=== PATIENT | female | born 1965 | race Caucasian/White ===

== ENCOUNTER 2017-04-02 18:35 | Emergency (ER) | payer OTHER ==
--- NOTE | 2017-04-02 19:41 | ED NURSING NOTES ---
Clinical Report - Nurses [facility] [address] [place] [address] 04/02/2017 18:38 Patient: RAGHAV SHEN TRIAGE Triage time 19:04. Acuity: LEVEL 4. Chief Complaint: SKIN PROBLEM and INSECT BITE --19:15 Karol Combs R.N. 19:07 04/02/17. BP: 194/103 taken on the left arm, while lying. HR: 101 (regular). RR: 18. O2 saturation: 100% on room air. Temp: 98.1 F (oral). Pain level now: 06/06. --19:15 Karol Combs R.N. Weight: 57.1 kg stated. Height/Length: 61 inches Per Patient. BMI: 23.8. --19:11 Karol Combs R.N. Medications Carvedilol Oral. CloNIDine HCl Oral. Lisinopril Oral. NIFEdipine Oral. --19:12 Karol Combs R.N. Allergies Penicillin. --19:12 Karol Combs R.N. Robaxin. --19:12 Karol Combs R.N. History Arrived by private vehicle. Historian: patient. Accompanied by family. Primary physician (jordi). Reported as located on the right ankle. This started today. Onset. (this morning). It is described as burning and painful. ( swollen with 2 open holes in middle noted to right ankle since this morning, pt reports thinking it is a spider bite.). PAST MEDICAL HX: Immunizations: up-to-date. Last normal menstrual period- 2010. The patient is post-menopausal. SOCIAL HX: Former smoker, end date 03/28/2017. No alcohol use or drug use. She has not traveled outside the [place] The patient was not exposed to tuberculosis, influenza, chicken pox, meningitis, MRSA, VRE, C-diff, SARS, Myles flu, H1N1 flu, Ebola or MERS. ABUSE ASSESSMENT: No report of abuse. SELF HARM ASSESSMENT: A self harm assessment was performed. The patient answered "no" to the question "Have you recently felt down, depressed, or hopeless?", "Have you noticed less interest or pleasure in doing things?", "Do you have thoughts of harming or killing yourself?", "Are you here because you tried to hurt yourself?", "Have you ever tried to hurt yourself before today?", "Have you recently had thoughts about harming or killing others?" and "Do you have any dangerous items in your possession?". FALL RISK ASSESSMENT: Fall risk assessment completed. No fall risk identified. NUTRITIONAL RISK ASSESSMENT: The nutritional risk assessment revealed no deficiencies. FUNCTIONAL ASSESSMENT: Functional assessment: no impairments noted. LEARNING NEEDS ASSESSMENT: The learning needs assessment revealed no barriers. SKIN INTEGRITY ASSESSMENT: Skin integrity risk assessment completed. No skin integrity risk identified. --19:15 Karol Combs R.N. PROBLEMS: Dialysis. Sprain. Abdominal Pain. Pelvic Inflammatory Disease. Renal Failure. --19:13 Karol Combs R.N. ADDITIONAL SURGERIES: Appendectomy. Fistula. --19:13 Karol Combs R.N. Interventions ID band on patient. --19:15 Karol Combs R.N. PHYSICAL ASSESSMENT To room via wheelchair. GENERAL / NEURO / PSYCH: Alert. Appears in pain. Oriented X 4. HEENT: Pupils equal, round and reactive to light. Mucous membranes are pink. RESPIRATORY: Respirations not labored. Breath sounds within normal limits. CVS: Capillary refill less than 2 seconds. Pulses within normal limits. GI / : Abdomen nontender. SKIN: Skin is warm. Single skin lesion with erythema, tenderness and increased warmth on the right ankle. Tenderness on the right ankle- associated with erythema, swelling and increased warmth. Swelling on the right ankle- associated with erythema, tenderness and increased warmth. Erythema on the right ankle. --19:16 Karol Combs R.N. NURSING PROGRESS NOTES Two patient identifiers checked. Call light placed in reach. Side rails up x 1. Bed placed in lowest position. Brakes of bed on. Patient ready for evaluation- chart flagged. --19:16 Karol Combs R.N. DISPOSITION / DISCHARGE Departure time: 1949. Condition at departure: unchanged and stable. No learning barriers present. Discharge instructions provided and reviewed with the patient. Reviewed medication(s) side effects, precautions, dosing and course information. Prescription(s) given to the patient. Reviewed wound care instructions. Patient verbalized understanding. Written instructions provided in [place]. The patient was discharged home and accompanied by spouse. She left the Emergency Department in a wheelchair and via private vehicle. Spouse driving. --19:55 Karol Combs R.N. 19:53 04/02/17. BP: 182/90 taken while lying. HR: 100 (regular and tachycardic). RR: 18 (regular and unlabored). O2 saturation: 100% on room air. Temp: deferred. Pain level now: 08/06. --19:55 Karol Combs R.N. Locked/Released at 04/02/2017 19:55 by Karol Cmobs R.N.
--- NOTE | 2017-04-02 19:41 | ED CLINICAL REPORT ---
Clinical Report - Physicians/Mid Levels [facility] [address] [place] [address] 04/02/2017 18:38 Patient: RAGHAV SHEN Time Seen: 1924; initial patient contact, initial documentation, patient care assumed. Arrived- By private vehicle. Historian- patient. HISTORY OF PRESENT ILLNESS Chief Complaint: LESION and TENDER AREA. This started today and is still present. It was abrupt in onset and has been constant. It is described as itchy, painful and burning. It has been located on the right foot. A possible cause has been identified (got bee sting on R hand so possibly stung on foot too). Similar symptoms previously: None. Recent medical care: Not recently seen/assessed. REVIEW OF SYSTEMS No fever. Dialysis M,W &F. All systems otherwise negative, except as recorded above. PAST HISTORY See nurses notes. PROBLEMS: Dialysis. Sprain. Abdominal Pain. Pelvic Inflammatory Disease. Renal Failure. --19:13 Karol Combs R.N. ADDITIONAL SURGERIES: Appendectomy. Fistula. --19:13 Karol Combs R.N. SOCIAL HISTORY Former smoker. No alcohol use or drug use. No recent travel. Is a local resident. FAMILY HISTORY Negative. ADDITIONAL NOTES The nursing notes have been reviewed with agreement regarding the chief complaint, HPI, ROS, PMH and patient medications and allergies. PHYSICAL EXAM Vital Signs: 04/02/2017 19:07 BP: 194/103. HR: 101. RR: 18. O2 saturation: 100%. Temp: 98.1 F. Pain level now: 8/10. Have been reviewed as abnormal and appear to be correct. Hypertensive. Heart rate normal. Respiratory rate normal. Temperature normal. Oxygen saturation normal. Appearance: Alert. Oriented X3. No acute distress. Eyes: Pupils equal, round and reactive to light. Conjunctivae and eyelids normal. ENT: Nose normal. Neck: Neck supple. Respiratory: No respiratory distress. Skin: Skin warm and dry. Abnormal skin color. No rash. Normal skin turgor. Small area of erythema with tenderness, warmth and swelling to right foot (x3 ? insect bites/stings, small pen point be[place] noted and evenly spaced). No lymphangitis. Extremities: Normal external inspection. Extremities nontender. Neuro: Oriented X 3. No motor deficit. No sensory deficit. PROGRESS AND PROCEDURES Patient counseled in person regarding the patient's stable condition and diagnosis. 19:40. Differential Diagnosis: Other possible considerations: insect bite/sting, mrsa, cellulitis, abscess, allergic reaction. Above considerations are based on history and physical exam. Differential diagnosis was discussed with patient. Disposition: Discharged home in good and unchanged condition (19:40). Condition: good and stable. CLINICAL IMPRESSION Multiple unknown insect bites to the right foot. Infection present. Local allergic reaction. Right. INSTRUCTIONS Warnings: GENERAL WARNINGS: Return or contact your physician immediately if your condition worsens or changes unexpectedly, if not improving as expected, or if other problems arise. Specifically return if problem worsens. Prescription Medications: Bactrim DS 800 mg / 160 mg: take 1 tablet orally every 12 hours for 10 days. No refill. [place] 5 mg / 325 mg tablets: take 1 orally every 6 hours as needed for pain. Dispense five (5). No refill. Motrin 800 mg tablets: take 1 tablet orally every 8 hours as needed for pain. Dispense thirty (30). No refills. Substitution is permissible. Follow-up: Follow up with your doctor in about two days as needed. Call for an appointment. Summary of care provided to patient. Understanding of the discharge instructions verbalized by patient. (Electronically signed by Alka Siddiqi A.R.N.P. 04/02/2017 22:23)
--- NOTE | 2017-04-02 19:41 | ED CLINICAL REPORT ---
Clinical Report - Physicians/Mid Levels [facility] [address] [place] [address] 04/02/2017 18:38 Patient: RAGHAV SHEN Time Seen: 1924; initial patient contact, initial documentation, patient care assumed. Arrived- By private vehicle. Historian- patient. HISTORY OF PRESENT ILLNESS Chief Complaint: LESION and TENDER AREA. This started today and is still present. It was abrupt in onset and has been constant. It is described as itchy, painful and burning. It has been located on the right foot. A possible cause has been identified (got bee sting on R hand so possibly stung on foot too). Similar symptoms previously: None. Recent medical care: Not recently seen/assessed. REVIEW OF SYSTEMS No fever. Dialysis M,W &F. All systems otherwise negative, except as recorded above. PAST HISTORY See nurses notes. PROBLEMS: Dialysis. Sprain. Abdominal Pain. Pelvic Inflammatory Disease. Renal Failure. --19:13 Karol Combs R.N. ADDITIONAL SURGERIES: Appendectomy. Fistula. --19:13 Karol Combs R.N. SOCIAL HISTORY Former smoker. No alcohol use or drug use. No recent travel. Is a local resident. FAMILY HISTORY Negative. ADDITIONAL NOTES The nursing notes have been reviewed with agreement regarding the chief complaint, HPI, ROS, PMH and patient medications and allergies. PHYSICAL EXAM Vital Signs: 04/02/2017 19:07 BP: 194/103. HR: 101. RR: 18. O2 saturation: 100%. Temp: 98.1 F. Pain level now: 8/10. Have been reviewed as abnormal and appear to be correct. Hypertensive. Heart rate normal. Respiratory rate normal. Temperature normal. Oxygen saturation normal. Appearance: Alert. Oriented X3. No acute distress. Eyes: Pupils equal, round and reactive to light. Conjunctivae and eyelids normal. ENT: Nose normal. Neck: Neck supple. Respiratory: No respiratory distress. Skin: Skin warm and dry. Abnormal skin color. No rash. Normal skin turgor. Small area of erythema with tenderness, warmth and swelling to right foot (x3 ? insect bites/stings, small pen point be[place] noted and evenly spaced). No lymphangitis. Extremities: Normal external inspection. Extremities nontender. Neuro: Oriented X 3. No motor deficit. No sensory deficit. PROGRESS AND PROCEDURES Patient counseled in person regarding the patient's stable condition and diagnosis. 19:40. Differential Diagnosis: Other possible considerations: insect bite/sting, mrsa, cellulitis, abscess, allergic reaction. Above considerations are based on history and physical exam. Differential diagnosis was discussed with patient. Disposition: Discharged home in good and unchanged condition (19:40). Condition: good and stable. CLINICAL IMPRESSION Multiple unknown insect bites to the right foot. Infection present. Local allergic reaction. Right. INSTRUCTIONS Warnings: GENERAL WARNINGS: Return or contact your physician immediately if your condition worsens or changes unexpectedly, if not improving as expected, or if other problems arise. Specifically return if problem worsens. Prescription Medications: Bactrim DS 800 mg / 160 mg: take 1 tablet orally every 12 hours for 10 days. No refill. [place] 5 mg / 325 mg tablets: take 1 orally every 6 hours as needed for pain. Dispense five (5). No refill. Motrin 800 mg tablets: take 1 tablet orally every 8 hours as needed for pain. Dispense thirty (30). No refills. Substitution is permissible. Follow-up: Follow up with your doctor in about two days as needed. Call for an appointment. Summary of care provided to patient. Understanding of the discharge instructions verbalized by patient. (Electronically signed by Alka Siddiqi A.R.N.P. 04/02/2017 22:23)
--- NOTE | 2017-04-02 22:24 | ED MAR SUMMARY ---
..... Medication Administration Record [facility] [address], [place] [id number] Patient: RAGHAV SHEN Visit ID: [id number] 51y, F Weight: 57.1 kg Height/Length: 61 in BMI: 23.8 ALLERGIES: Penicillin, Robaxin
--- NOTE | 2017-04-02 22:24 | ED MED RECONCILIATION SUMMARY ---
Patient: RAGHAV SHEN Medication Reconciliation Report [facility] VisitID: [id number] [address] [place] [address] 51y, F Registration Date/Time: 04/02/2017 Weight: 57.1 kg Height/Length: 61 in. BMI: 23.8 ALLERGIES: Penicillin, Robaxin The patient's Home Medications are listed below: THE FOLLOWING MEDICATIONS NEED TO BE RECONCILED: Carvedilol Oral CloNIDine HCl Oral Lisinopril Oral NIFEdipine Oral The source(s) of the original Home Medication information: Not obtained. The following Medications were given to the patient in the Emergency Department: None. The following Medications were prescribed to the patient: Bactrim DS 800 mg / 160 mg: take 1 tablet orally every 12 hours for 10 days. No refill. -- Alka Siddiqi A.R.N.P. [place] 5 mg / 325 mg tablets: take 1 orally every 6 hours as needed for pain. Dispense five (5). No refill. -- Alka Siddiqi A.R.N.P. Motrin 800 mg tablets: take 1 tablet orally every 8 hours as needed for pain. Dispense thirty (30). No refills. Substitution is permissible. -- Alka Siddiqi A.R.N.P.
--- NOTE | 2017-04-02 22:24 | ED ORDER SUMMARY ---
..... Patient: RAGHAV SHEN OrderSheet [facility] VisitID: [id number] [address] [place] [address] 51y, F Registration Date/Time: 04/02/2017 ORDER SHEET Weight: 57.1 kg (stated) Allergies: Penicillin, Robaxin GENERAL ORDERS: - (please yoselin area of erythema with skin pen) (19:42 04/02/2017 Sukh A.R.N.P.) (19:46 Alyce Landaverde) MEDICATION ORDERS: IV FLUIDS: ORDER SHEET NOTES: [Electronically signed by Karol Combs R.N. (19:55 04/02/2017)] [Electronically signed by Alka SiddiqiRRonaldN.PRonald (22:23 04/02/2017)] [Electronically locked/signed by Karol Combs R.N. (19:55 04/02/2017)]
--- NOTE | 2017-04-02 22:24 | ED DISCHARGE INSTRUCTIONS ---
Patient: RAGHAV SHEN General Instructions [facility] VisitID: [id number] [place] [address] 51y, F Registration Date/Time: 04/02/2017 Multiple unknown insect bites to the right foot. Infection present. Local allergic reaction. Right. INSTRUCTIONS Warnings: GENERAL WARNINGS: Return or contact your physician immediately if your condition worsens or changes unexpectedly, if not improving as expected, or if other problems arise. Specifically return if problem worsens. Prescription Medications: Bactrim DS 800 mg / 160 mg: take 1 tablet orally every 12 hours for 10 days. No refill. Matlock 5 mg / 325 mg tablets: take 1 orally every 6 hours as needed for pain. Dispense five (5). No refill. Motrin 800 mg tablets: take 1 tablet orally every 8 hours as needed for pain. Dispense thirty (30). No refills. Substitution is permissible. Follow-up: Follow up with your doctor in about two days as needed. Call for an appointment. Summary of care provided to patient. Understanding of the discharge instructions verbalized by patient. ADDITIONAL INFORMATION Insect Sting:Local Reaction You have been stung or bitten by an insect. The insects venom or body fluid is causing your skin to react in the area where you were stung or bitten. This often causes redness, itching and swelling. This reaction will fade over a few hours to a few days. An insect bite/sting can become infected 1-3 days later, so watch for the signs below. Sometimes it is hard to tell the difference between a local reaction to the insect bite/sting and an early infection, so antibiotics may be started. Home Care: If itching is a problem, avoid things that heat up your skin (hot showers or baths, direct sunlight) since this will make itching worse. An ice pack (ice cubes in a plastic bag, wrapped in a towel) will reduce local areas of redness and itching. Lanacaine cream or Solarcaine spray (or other product containing "benzocaine") will reduce the itching. Oral Benadryl (diphenhydramine) is an antihistamine available at drug and grocery stores. Unless a prescription antihistamine was given, Benadryl may be used to reduce itching if large areas of the skin are involved. Use lower doses during the daytime and higher doses at bedtime since the drug may make you sleepy. [NOTE: Do not use Benadryl if you have glaucoma or if you are a man with trouble urinating due to an enlarged prostate.] Claritin (loratadine) is an antihistamine that causes less drowsiness and is a good alternative for daytime use. If oral ANTIBIOTICS were prescribed, be sure to take them until finished. You may use acetaminophen (Tylenol) or ibuprofen (Motrin, Advil) to control pain, unless another pain medicine was prescribed. [NOTE: If you have chronic liver or kidney disease or ever had a stomach ulcer or GI bleeding, talk with your doctor before using these medicines.] Preventing Future Reactions: Future reactions could be worse than this one, so try to avoid situations where you might be stung again. Be aware that honeybees nest in trees. Wasps and yellow jackets nest in the ground, trees or roof eaves. If you are stung by a honeybee a stinger will remain in your skin. Wasps, yellow jackets, hornets do not leave a stinger behind. Move away from the nest area immediately. The stinger of a honeybee releases a substance that will attract other bees to you. Once you are away from the nest, then remove the stinger as quickly as possible. After any sting, you may apply ice and take Benadryl or other antihistamine. If you develop any of the warning signs below, seek help immediately. If you are at high risk for another sting or if your reaction included dizziness, fainting or trouble breathing or swallowing, ask your doctor for an Insect Allergy Kit. Follow Up with your doctor or this facility in two days if your symptoms do not start to improve. Get Prompt Medical Attention if any of the following occur: Spreading areas of itching, redness or swelling New or worse swelling in the face, eyelids, lips, mouth, throat or tongue Trouble swallowing or breathing Dizziness, weakness or fainting Signs of infection: Spreading redness Increased pain or swelling Fever of 100.4F (38C) or higher, or as directed by your healthcare provider Colored fluid draining from the wound Insect Bite/Sting, Infected You have been stung or bitten by an insect. Signs of infection include redness, itching, and slight swelling. Infections will need treatment with antibiotics and should improve over the next ten days. Home care The following will help you care for your bite or sting at home: If itching is a problem, applying ice packs to the sting area will help. Wash the area with soap and water at least three times a day. Apply a topical antibiotic cream or ointment. You can use an over-the counter antihistamine unless you were given a prescription antihistamine. Antihistamines may be used to reduce itching if large areas of the skin are involved. Use lower doses during the daytime and higher doses at bedtime since the drug may make you sleepy. Do not use an antihistamine if you have glaucoma or if you are a man with trouble urinating due to an enlarged prostate. Some antihistamines cause less drowsiness and are a good alternative for daytime use. If oral antibiotics have been prescribed, be sure to take them as directed until they are all finished. You may use acetaminophen or ibuprofen to control pain, unless another pain medicine was prescribed.If you have chronic liver or kidney disease or ever had a stomach ulcer or GI bleeding, talk with your doctor before using these medicines. Follow-up care Follow up with your doctor as directed if you do not improve over the next two days or if your symptoms worsen. When to seek medical care Get prompt medical attention if any of the following occur: Spreading areas of redness or swelling Swelling of the face, eyelids, mouth, throat, or tongue Difficulty swallowing or breathing Fever of 100.4F (38C) or higher, or as directed by your health care provider Increased local pain Headache, fever, chills, muscle or joint aching, vomiting, New rash Sulfamethoxazole, Trimethoprim Oral tablet What is this medicine? SULFAMETHOXAZOLE; TRIMETHOPRIM or SMX-TMP (suhl fuh meth OK con zohl; trye METH oh prim) is a combination of a sulfonamide antibiotic and a second antibiotic, trimethoprim. It is used to treat or prevent certain kinds of bacterial infections. It will not work for colds, flu, or other viral infections. How should I use this medicine? Take this medicine by mouth with a full glass of water. Follow the directions on the prescription label. Take your medicine at regular intervals. Do not take it more often than directed. Do not skip doses or stop your medicine early. Talk to your cut out operator regarding the use of this medicine in children. Special care may be needed. This medicine has been used in children as young as 2 months of age. What side effects may I notice from receiving this medicine? Side effects that you should report to your doctor or health child caregiver private home as soon as possible: allergic reactions like skin rash or hives, swelling of the face, lips, or tongue breathing problems fever or chills, sore throat irregular heartbeat, chest pain joint or muscle pain pain or difficulty passing urine red pinpoint spots on skin redness, blistering, peeling or loosening of the skin, including inside the mouth unusual bleeding or bruising unusually weak or tired yellowing of the eyes or skin Side effects that usually do not require medical attention (report to your doctor or health child caregiver private home if they continue or are bothersome): diarrhea dizziness headache loss of appetite nausea, vomiting nervousness What may interact with this medicine? Do not take this medicine with any of the following medications: aminobenzoate potassium dofetilide metronidazole This medicine may also interact with the following medications: KODY inhibitors like benazepril, enalapril, lisinopril, and ramipril cyclosporine digoxin diuretics indomethacin medicines for diabetes methenamine methotrexate phenytoin potassium supplements pyrimethamine sulfinpyrazone tricyclic antidepressants warfarin What if I miss a dose? If you miss a dose, take it as soon as you can. If it is almost time for your next dose, take only that dose. Do not take double or extra doses. Where should I keep my medicine? Keep out of the reach of children. Store at room temperature between 20 to 25 degrees C (68 to 77 degrees F). Protect from light. Throw away any unused medicine after the expiration date. What should I tell my health care provider before I take this medicine? They need to know if you have any of these conditions: anemia asthma being treated with anticonvulsants if you frequently drink alcohol containing drinks kidney disease liver disease low level of folic acid or [id number]-susgjnsom dehydrogenase poor nutrition or malabsorption porphyria severe allergies thyroid disorder an unusual or allergic reaction to sulfamethoxazole, trimethoprim, sulfa drugs, other medicines, foods, dyes, or preservatives or trying to get breast-feeding What should I watch for while using this medicine? Tell your doctor or health child caregiver private home if your symptoms do not improve. Drink several glasses of water a day to reduce the risk of kidney problems. Do not treat diarrhea with over the counter products. Contact your doctor if you have diarrhea that lasts more than 2 days or if it is severe and watery. This medicine can make you more sensitive to the sun. Keep out of the sun. If you cannot avoid being in the sun, wear protective clothing and use a sunscreen. Do not use sun lamps or tanning beds/booths. Hydrocodone Bitartrate, Acetaminophen Oral tablet What is this medicine? ACETAMINOPHEN; HYDROCODONE (a set a DAVID gerry fen; jillian droe KOE done) is a pain reliever. It is used to treat mild to moderate pain. How should I use this medicine? Take this medicine by mouth. Swallow it with a full glass of water. Follow the directions on the prescription label. If the medicine upsets your stomach, take the medicine with food or milk. Do not take more than you are told to take. Talk to your cut out operator regarding the use of this medicine in children. This medicine is not approved for use in children. What side effects may I notice from receiving this medicine? Side effects that you should report to your doctor or health child caregiver private home as soon as possible: allergic reactions like skin rash, itching or hives, swelling of the face, lips, or tongue breathing problems confusion feeling faint or lightheaded, falls stomach pain yellowing of the eyes or skin Side effects that usually do not require medical attention (report to your doctor or health child caregiver private home if they continue or are bothersome): nausea, vomiting stomach upset What may interact with this medicine? alcohol antihistamines isoniazid medicines for depression, anxiety, or psychotic disturbances medicines for sleep muscle relaxants naltrexone narcotic medicines (opiates) for pain phenobarbital ritonavir tramadol What if I miss a dose? If you miss a dose, take it as soon as you can. If it is almost time for your next dose, take only that dose. Do not take double or extra doses. Where should I keep my medicine? Keep out of the reach of children. This medicine can be abused. Keep your medicine in a safe place to protect it from theft. Do not share this medicine with anyone. Selling or giving away this medicine is dangerous and against the law. Store at room temperature between 15 and 30 degrees C (59 and 86 degrees F). Protect from light. Keep container tightly closed. Throw away any unused medicine after the expiration date. Discard unused medicine and used packaging carefully. Pets and children can be harmed if they find used or lost packages. What should I tell my health care provider before I take this medicine? They need to know if you have any of these conditions: brain tumor Crohn's disease, inflammatory bowel disease, or ulcerative colitis drink more than 3 alcohol-containing drinks per day drug abuse or addiction head injury heart or circulation problems kidney disease or problems going to the bathroom liver disease lung disease, asthma, or breathing problems an unusual or allergic reaction to acetaminophen, hydrocodone, other opioid analgesics, other medicines, foods, dyes, or preservatives or trying to get breast-feeding What should I watch for while using this medicine? Tell your doctor or health child caregiver private home if your pain does not go away, if it gets worse, or if you have new or a different type of pain. You may develop tolerance to the medicine. Tolerance means that you will need a higher dose of the medicine for pain relief. Tolerance is normal and is expected if you take the medicine for a long time. Do not suddenly stop taking your medicine because you may develop a severe reaction. Your body becomes used to the medicine. This does NOT mean you are addicted. Addiction is a behavior related to getting and using a drug for a non-medical reason. If you have pain, you have a medical reason to take pain medicine. Your doctor will tell you how much medicine to take. If your doctor wants you to stop the medicine, the dose will be slowly lowered over time to avoid any side effects. You may get drowsy or dizzy when you first start taking the medicine or change doses. Do not drive, use machinery, or do anything that may be dangerous until you know how the medicine affects you. Stand or sit up slowly. There are different types of narcotic medicines (opiates) for pain. If you take more than one type at the same time, you may have more side effects. Give your health care provider a list of all medicines you use. Your doctor will tell you how much medicine to take. Do not take more medicine than directed. Call emergency for help if you have problems breathing. The medicine will cause constipation. Try to have a bowel movement at least every 2 to 3 days. If you do not have a bowel movement for 3 days, call your doctor or health child caregiver private home. Too much acetaminophen can be very dangerous. Do not take Tylenol (acetaminophen) or medicines that contain acetaminophen with this medicine. Many non-prescription medicines contain acetaminophen. Always read the labels carefully. Ibuprofen Oral tablet What is this medicine? IBUPROFEN (eye BYOO proe fen) is a non-steroidal anti-inflammatory drug (NSAID). It is used for dental pain, fever, headaches or migraines, osteoarthritis, rheumatoid arthritis, or painful monthly periods. It can also relieve minor aches and pains caused by a cold, flu, or sore throat. How should I use this medicine? Take this medicine by mouth with a glass of water. Follow the directions on the prescription label. Take this medicine with food if your stomach gets upset. Try to not lie down for at least 10 minutes after you take the medicine. Take your medicine at regular intervals. Do not take your medicine more often than directed. A special MedGuide will be given to you by the pharmacist with each prescription and refill. Be sure to read this information carefully each time. Talk to your cut out operator regarding the use of this medicine in children. Special care may be needed. What side effects may I notice from receiving this medicine? Side effects that you should report to your doctor or health child caregiver private home as soon as possible: allergic reactions like skin rash, itching or hives, swelling of the face, lips, or tongue black or bloody stools, blood in the urine or in vomit breathing problems changes in vision chest pain general ill feeling or flu-like symptoms nausea or vomiting redness, blistering, peeling or loosening of the skin, including inside the mouth slurred speech or weakness on one side of the body stomach pain unexplained weight gain or swelling unusually weak or tired yellowing of eyes or skin Side effects that usually do not require medical attention (report to your doctor or health child caregiver private home if they continue or are bothersome): constipation or diarrhea dizziness gas or heartburn stomach upset What may interact with this medicine? Do not take this medicine with any of the following medications: cidofovir ketorolac methotrexate pemetrexed This medicine may also interact with the following medications: alcohol aspirin diuretics lithium other drugs for inflammation like prednisone warfarin What if I miss a dose? If you miss a dose, take it as soon as you can. If it is almost time for your next dose, take only that dose. Do not take double or extra doses. Where should I keep my medicine? Keep out of the reach of children. Store at room temperature between 15 and 30 degrees C (59 and 86 degrees F). Keep container tightly closed. Throw away any unused medicine after the expiration date. What should I tell my health care provider before I take this medicine? They need to know if you have any of these conditions: asthma cigarette smoker drink more than 3 alcohol containing drinks a day heart disease or circulation problems such as heart failure or leg edema (fluid retention) high blood pressure kidney disease liver disease stomach bleeding or ulcers an unusual or allergic reaction to ibuprofen, aspirin, other NSAIDS, other medicines, foods, dyes, or preservatives or trying to get breast-feeding What should I watch for while using this medicine? Tell your doctor or healthcare professional if your symptoms do not start to get better or if they get worse. This medicine does not prevent heart attack or stroke. In fact, this medicine may increase the chance of a heart attack or stroke. The chance may increase with longer use of this medicine and in people who have heart disease. If you take aspirin to prevent heart attack or stroke, talk with your doctor or health child caregiver private home. Do not take other medicines that contain aspirin, ibuprofen, or naproxen with this medicine. Side effects such as stomach upset, nausea, or ulcers may be more likely to occur. Many medicines available without a prescription should not be taken with this medicine. This medicine can cause ulcers and bleeding in the stomach and intestines at any time during treatment. Ulcers and bleeding can happen without warning symptoms and can cause . To reduce your risk, do not smoke cigarettes or drink alcohol while you are taking this medicine. You may get drowsy or dizzy. Do not drive, use machinery, or do anything that needs mental alertness until you know how this medicine affects you. Do not stand or sit up quickly, especially if you are an older patient. This reduces the risk of dizzy or fainting spells. This medicine can cause you to bleed more easily. Try to avoid damage to your teeth and gums when you brush or floss your teeth. You have been given the following additional information: Allergic Reaction, Insect (Local) Insect Sting/Bite, Infected Sulfamethoxazole, Trimethoprim Oral tablet Hydrocodone Bitartrate, Acetaminophen Oral tablet Ibuprofen Oral tablet (Electronically signed by Alka Siddiqi A.R.N.P. 04/02/2017 22:23)
--- NOTE | 2017-04-02 22:24 | ED MED RECONCILIATION SUMMARY ---
Patient: RAGHAV SHEN Medication Reconciliation Report [facility] VisitID: [id number] [address] [place] [address] 51y, F Registration Date/Time: 04/02/2017 Weight: 57.1 kg Height/Length: 61 in. BMI: 23.8 ALLERGIES: Penicillin, Robaxin The patient's Home Medications are listed below: THE FOLLOWING MEDICATIONS NEED TO BE RECONCILED: Carvedilol Oral CloNIDine HCl Oral Lisinopril Oral NIFEdipine Oral The source(s) of the original Home Medication information: Not obtained. The following Medications were given to the patient in the Emergency Department: None. The following Medications were prescribed to the patient: Bactrim DS 800 mg / 160 mg: take 1 tablet orally every 12 hours for 10 days. No refill. -- Alka Siddiqi A.R.N.P. Warren 5 mg / 325 mg tablets: take 1 orally every 6 hours as needed for pain. Dispense five (5). No refill. -- Alka Siddiqi A.R.N.P. Motrin 800 mg tablets: take 1 tablet orally every 8 hours as needed for pain. Dispense thirty (30). No refills. Substitution is permissible. -- Alka Siddiqi A.R.N.P.
--- NOTE | 2017-04-02 22:24 | ED MAR SUMMARY ---
..... Medication Administration Record [facility] [address] [place], [place] [id number] Patient: RAGHAV SHEN Visit ID: [id number] 51y, F Weight: 57.1 kg Height/Length: 61 in BMI: 23.8 ALLERGIES: Penicillin, Robaxin
--- NOTE | 2017-04-02 22:24 | ED ORDER SUMMARY ---
..... Patient: RAGHAV SHEN OrderSheet [facility] VisitID: [id number] [address] [place] [address] 51y, F Registration Date/Time: 04/02/2017 ORDER SHEET Weight: 57.1 kg (stated) Allergies: Penicillin, Robaxin GENERAL ORDERS: - (please yoselin area of erythema with skin pen) (19:42 04/02/2017 Sukh A.R.N.P.) (19:46 Alyce Landaverde) MEDICATION ORDERS: IV FLUIDS: ORDER SHEET NOTES: [Electronically signed by Karol Combs R.N. (19:55 04/02/2017)] [Electronically signed by Alka SiddiqiRRonaldN.PRonald (22:23 04/02/2017)] [Electronically locked/signed by Karol Combs R.N. (19:55 04/02/2017)]
== END 2017-04-02 19:50 | disposition home or self-care (01) ==
LOC: ED SRH 18:35
DX: S90.861A Insect bite (nonvenomous), right foot, initial encounter (principal); W57.XXXA Bitten or stung by nonvenomous insect and other nonvenomous arthropods, initial encounter; Y93.9 Activity, unspecified; Y99.9 Unspecified external cause status; Y92.9 Unspecified place or not applicable

== ENCOUNTER 2017-04-05 11:16 | Emergency (ER) | payer OTHER ==
--- NOTE | 2017-04-05 13:13 | ED ORDER SUMMARY ---
..... Patient: RAGHAV SHEN OrderSheet [facility] VisitID: [id number] [address] [place] [address] 51y, F Registration Date/Time: 04/05/2017 ORDER SHEET Weight: 57.1 kg (stated) Allergies: Penicillin, Robaxin GENERAL ORDERS: MEDICATION ORDERS: Benadryl PO 50 mg (NOW) (14:00 04/05/2017 [facility]) (Cancelled: Patient Ejocelb77:03 [facility]) IV FLUIDS: Vancomycin IV 1 gm/200mL (NOW) (11:56 04/05/2017 [facility]) (Ack 11:59 DDean R.N.) (12:50 DDean R.N.) IV NS : initial bolus none -, then 50 mL/hr for 2h (NOW) (12:50 04/05/2017 DDean R.N. per protocol) (12:51 DDean R.N.) Dilaudid IV 0.5 mg (HIGH ALERT MEDICATION, NOW) (13:44 04/05/2017 [facility]) (Ack 14:01 DDean R.N.) (15:13 DDean R.N.) Zofran IV 4 mg (NOW) (13:44 04/05/2017 [facility]) (Ack 14:01 DDean R.N.) (15:12 DDean R.N.) Benadryl IV 25 mg (NOW) (13:59 04/05/2017 [facility]) (Cancelled: Other14:00 [facility]) (Cancelled: Other14:01 DDean R.N.) ORDER SHEET NOTES: [Electronically signed by Hipolito Shannon DO (14:39 04/05/2017)] [Electronically signed by Zoey Rodney R.N. (15:17 04/05/2017)] [Electronically locked/signed by Zoey Rodney R.N. (15:17 04/05/2017)]
--- NOTE | 2017-04-05 13:13 | ED NURSING NOTES ---
Clinical Report - Nurses [facility] [address] [place] [address] 04/05/2017 11:17 Patient: RAGHAV SHEN TRIAGE Triage time 1125. Acuity: LEVEL 3. Chief Complaint: RIGHT LOWER EXTREMITY PAIN, SWELLING and REDNESS. Location of symptoms- (pt back in after being seen on 04/05 in ED). --11:33 Zoey Rodney R.N. 11:25 04/05/17. BP: 174/90. HR: 84. RR: 18. O2 saturation: 97% on room air. Temp: 98.1 F. Pain level now: 05/06. --11:33 Zoey Rodney R.N. Weight: 57.1 kg stated. Height/Length: 61 inches Per Patient. BMI: 23.8. --11:32 Zoey Rodney R.N. Medications Carvedilol Oral. CloNIDine HCl Oral. Lisinopril Oral. NIFEdipine Oral. --11:31 Zoey Rodney R.N. Bactrim DS 1 tab BID , started 04/02. --11:31 Zoey Rodney R.N. Vicodin Oral 5 mg, 3x a day as needed, last dose 0600. --11:31 Zoey Rodney R.N. Allergies Penicillin. Robaxin. --11:31 Zoey Rodney R.N. History Arrived by private vehicle. Historian: patient. Accompanied by spouse. No primary care physician. This occurred (04/02/17 for cellulitis and started on bactrim. Pt states swelling and redness have gotten worse dispite antibiotic). She has had swelling, redness and trouble walking. SOCIAL HX: Former smoker (quit 03/28/17). No alcohol use or drug use. --11:33 Zoey Rodney R.N. PROBLEMS: Insect Bite(s). Dialysis. Pelvic Inflammatory Disease. Renal Failure. --11:33 Zoey Rodney R.N. ADDITIONAL SURGERIES: Appendectomy. Fistula. --11:33 Zoey Rodney R.N. Interventions ID band on patient. To treatment room. --11:33 Zoey Rodney R.N. PHYSICAL ASSESSMENT 11:35 04/05/17. To room via wheelchair. GENERAL / NEURO / PSYCH: Oriented X 4. Appears in no acute distress. EXTREMITIES: Erythema on the extremities. Limited ROM present. Increased warmth on the extremities. Lower extremity edema. Right ankle: tenderness, swelling and erythema. Right foot: tenderness, swelling and erythema. SKIN: Skin is warm. --11:35 Zoey Rodney R.N. NURSING PROGRESS NOTES 11:25. Patient gowned. Reassurance given. Patient identifiers checked. Call light placed in reach. Side rails up. Bed placed in lowest position. Patient ready for evaluation- chart flagged. --11:34 Zoey Rodney R.N. 12:27 04/05/2017 Site #1 started via IV in the right forearm with an 20g angiocath, with aseptic technique and good blood return; one attempt. Blood drawn: rainbow set. Labeled in the presence of the patient and sent to the lab. Saline lock flushed with 10 mL saline. --12:27 Gisel Mcgrath R.N. 12:35 04/05/2017 Started bag #1 1000 mL IV Fluids IV NS (Saline); at 50 mL/hr over 2 hour(s) via site #1 via IV pump. IV patency established. IV site checked: no pain, redness, or swelling. IV flushed thoroughly pre- and post-medication administration. --12:51 Zoey Rodney R.N. 12:45 04/05/2017 Started 1 gm of Vancomycin IVPB in bag #1 200 mL; at 200 mL/hr over 1 hour(s) via site #1 via IV pump. IV patency established. IV site checked: no pain, redness, or swelling. IV flushed thoroughly pre- and post-medication administration. --12:50 Zoey Rodney R.N. 12:25 IV started and blood drawn. --12:52 Zoey Rodney R.N. 12:30 Pt up to bathroom via w/c alexis well. --12:53 Zoey Rodney R.N. 13:38 04/05/2017 Site #1 removed upon discharge. Bandaid applied. --15:16 Zoey Rodney R.N. 13:38 04/05/2017 Vancomycin IVPB Discontinued: bag #1 infused upon discharge. Total amount infused: 200 mL. IV patency established. IV site checked: no pain, redness, or swelling. IV flushed thoroughly. --15:13 Zoey Rodney R.N. 13:38 04/05/2017 IV Fluids IV NS Discontinued: bag #1 STOPPED upon discharge. Total amount infused: 50 mL. IV patency established. IV site checked: no pain, redness, or swelling. IV flushed thoroughly. --15:14 Zoey Rodney R.N. 13:40 04/05/2017 Zofran (Ondansetron HCl) IVP 4 mg given over 1 minute(s) via site #1. IV patency established. IV site checked: no pain, redness, or swelling. IV flushed thoroughly pre- and post-medication administration. IVP given by RN. --15:12 Zoey Rodney R.N. 13:41 04/05/2017 Dilaudid (HYDROmorphone HCl PF) IVP 0.5 mg given over 1 minute(s) via site #1. Sedative warning given to the patient. IV patency established. IV site checked: no pain, redness, or swelling. IV flushed thoroughly pre- and post-medication administration. IVP given by RN. --15:13 Zoey Rodney R.N. 13:55. ( Pt reading a book, at bedside, IV infusing well). --15:15 Zoey Rodney R.N. correction to prior entry -time above should be 1255, Not 1355. --15:16 Zoey Rodney R.N. DISPOSITION / DISCHARGE 13:45. Condition at departure: improved and stable. No learning barriers present. Discharge instructions provided and reviewed with the patient and spouse. Reviewed medication(s) (clindamycin with bactrim,). Patient and spouse verbalized understanding. Written instructions provided in Irish. The patient was discharged home and accompanied by spouse. She left the Emergency Department in a wheelchair and via private vehicle. Spouse driving. --15:11 Zoey Rodney R.N. 13:45 04/05/17. BP: 137/79. HR: 72. RR: 18. O2 saturation: 98%. Temp: deferred. Pain level now: 05/06. --15:11 Zoey Rodney R.N. Locked/Released at 04/05/2017 15:17 by Zoey Rodney R.N.
--- NOTE | 2017-04-05 13:13 | ED ORDER SUMMARY ---
..... Patient: RAGHAV SHEN OrderSheet [facility] VisitID: [id number] [address] [place] [address] 51y, F Registration Date/Time: 04/05/2017 ORDER SHEET Weight: 57.1 kg (stated) Allergies: Penicillin, Robaxin GENERAL ORDERS: MEDICATION ORDERS: Benadryl PO 50 mg (NOW) (14:00 04/05/2017 [facility]) (Cancelled: Patient [id number] [facility]) IV FLUIDS: Vancomycin IV 1 gm/200mL (NOW) (11:56 04/05/2017 [facility]) (Ack 11:59 DDean R.N.) (12:50 DDean R.N.) IV NS : initial bolus none -, then 50 mL/hr for 2h (NOW) (12:50 04/05/2017 DDean R.N. per protocol) (12:51 DDean R.N.) Dilaudid IV 0.5 mg (HIGH ALERT MEDICATION, NOW) (13:44 04/05/2017 [facility]) (Ack 14:01 DDean R.N.) (15:13 DDean R.N.) Zofran IV 4 mg (NOW) (13:44 04/05/2017 [facility]) (Ack 14:01 DDean R.N.) (15:12 DDean R.N.) Benadryl IV 25 mg (NOW) (13:59 04/05/2017 [facility]) (Cancelled: Other14:00 [facility]) (Cancelled: Other14:01 DDean R.N.) ORDER SHEET NOTES: [Electronically signed by Hipolito Shannon DO (14:39 04/05/2017)] [Electronically signed by Zoey Rodney R.N. (15:17 04/05/2017)] [Electronically locked/signed by Zoey Rodney R.N. (15:17 04/05/2017)]
--- NOTE | 2017-04-05 13:13 | ED CLINICAL REPORT ---
Clinical Report - Physicians/Mid Levels [facility] [address] [place] [address] 04/05/2017 11:17 Patient: RAGHAV SHEN Time Seen: 11:45. Arrived- By private vehicle. Historian- patient. HISTORY OF PRESENT ILLNESS Chief Complaint: LESION and TENDER AREA. This started about 4 days ago and is still present. It was gradual in onset and has been waxing/waning. It is described as painful. It has been located on the right foot. No cause has been identified. Similar symptoms previously: Recent medical care: The patient was seen recently at this facility in the emergency department. ( (04/02/17 for cellulitis and started on bactrim). Seen for similar symptoms. Diagnosis: cellulitis. REVIEW OF SYSTEMS No fever, chills, sore throat, cough or difficulty breathing. No eye irritation, chest pain, abdominal pain, nausea or diarrhea. No vomiting. All systems otherwise negative, except as recorded above. PAST HISTORY Insect Bite(s). Dialysis. Pelvic Inflammatory Disease. Renal Failure. SURGERIES: Appendectomy. Fistula. Medications: Vicodin Oral 5 mg, 3x a day as needed, last dose 0600. Bactrim DS 1 tab BID , started 04/02. Carvedilol Oral. CloNIDine HCl Oral. Lisinopril Oral. NIFEdipine Oral. Allergies: Penicillin. Robaxin. SOCIAL HISTORY Smoker- current status unknown. No alcohol use or drug use. ADDITIONAL NOTES The nursing notes have been reviewed. PHYSICAL EXAM Vital Signs: 04/05/2017 11:25 BP: 174/90. HR: 84. RR: 18. O2 saturation: 97%. Temp: 98.1 F. Pain level now: 7/10. Appearance: Alert. Oriented X3. Patient in mild distress. ENT: Pharynx normal. Neck: Neck supple. CVS: Normal heart rate and rhythm. Heart sounds normal. Respiratory: No respiratory distress. Breath sounds normal. Abdomen: Nontender. No organomegaly. Skin: Skin warm and dry. Medium area of cellulitis with tenderness, erythema and warmth to right foot (with foot and ankle swelling). Extremities: (right foot and ankle cellulitis). Neuro: Oriented X 3. No motor deficit. LABS, X-RAYS, AND EKG Pulse Oximetry: 04/05/2017 11:25 O2 saturation: 97%. (FIO2 - room air). Interpretation: normal. PROGRESS AND PROCEDURES Course of Care: Benadryl 50 mg pt refused PO given. Vancomycin 1 gram IVPB given. Zofran 4 mg IVP given. Dilaudid 0.5 mg IVP given. Pt with mild cellulitis of the foot / ankle - had as skin break which is healing. Taking bactrim without much change - will give dose of IV abx (vanco) and add clindamycin. She needs dialysis today and may receive vanco at dialysis as well. She is strongly encouraged to f/u closely with her wall covering installer, Dr Galaviz today - scheduled dialysis. May need ongoing IV abx if not improving 14:00 04/05/17. Pt noting mild erythroderma (no pruritis or swelling or difficulty breathing, talking or swallowing) - could be mild Red man vs dilaudid; no other signs of anaphylaxsis / allergy now. Patient/family counseled. Old ED records reviewed. Disposition: Discharged. Condition: stable and improved. CLINICAL IMPRESSION Cellulitis of the right foot. INSTRUCTIONS Drink plenty of fluids. Warnings: Further evaluation is necessary in order to conduct further tests and assess the possibility of serious illness. It is very important to follow up with a physician. GENERAL WARNINGS: Return or contact your physician immediately if your condition worsens or changes unexpectedly, if not improving as expected, or if other problems arise. Your Current Medications: CONTINUE TAKING THE FOLLOWING MEDICATIONS: Bactrim DS 1 tab BID , started 04/02*. Carvedilol Oral. CloNIDine HCl Oral. Lisinopril Oral. NIFEdipine Oral. Vicodin Oral : 5 mg 3x a day, Last: 0600, prn. Prescription Medications: Clindamycin 300 mg: take 1 capsule orally every 6 hours for 7 days. No refills. Follow-up: Follow up with your doctor Please report to your wall covering installer today - you will need your usual dialysis and may need to be hospitalized for ongoing IV antibiotics if not improving today. (Electronically signed by Hipolito Shannon DO 04/05/2017 14:39)
--- NOTE | 2017-04-05 13:13 | ED CLINICAL REPORT ---
Clinical Report - Physicians/Mid Levels [facility] [address] [place] [address] 04/05/2017 11:17 Patient: RAGHAV SHEN Time Seen: 11:45. Arrived- By private vehicle. Historian- patient. HISTORY OF PRESENT ILLNESS Chief Complaint: LESION and TENDER AREA. This started about 4 days ago and is still present. It was gradual in onset and has been waxing/waning. It is described as painful. It has been located on the right foot. No cause has been identified. Similar symptoms previously: Recent medical care: The patient was seen recently at this facility in the emergency department. ( (04/02/17 for cellulitis and started on bactrim). Seen for similar symptoms. Diagnosis: cellulitis. REVIEW OF SYSTEMS No fever, chills, sore throat, cough or difficulty breathing. No eye irritation, chest pain, abdominal pain, nausea or diarrhea. No vomiting. All systems otherwise negative, except as recorded above. PAST HISTORY Insect Bite(s). Dialysis. Pelvic Inflammatory Disease. Renal Failure. SURGERIES: Appendectomy. Fistula. Medications: Vicodin Oral 5 mg, 3x a day as needed, last dose 0600. Bactrim DS 1 tab BID , started 04/02. Carvedilol Oral. CloNIDine HCl Oral. Lisinopril Oral. NIFEdipine Oral. Allergies: Penicillin. Robaxin. SOCIAL HISTORY Smoker- current status unknown. No alcohol use or drug use. ADDITIONAL NOTES The nursing notes have been reviewed. PHYSICAL EXAM Vital Signs: 04/05/2017 11:25 BP: 174/90. HR: 84. RR: 18. O2 saturation: 97%. Temp: 98.1 F. Pain level now: 7/10. Appearance: Alert. Oriented X3. Patient in mild distress. ENT: Pharynx normal. Neck: Neck supple. CVS: Normal heart rate and rhythm. Heart sounds normal. Respiratory: No respiratory distress. Breath sounds normal. Abdomen: Nontender. No organomegaly. Skin: Skin warm and dry. Medium area of cellulitis with tenderness, erythema and warmth to right foot (with foot and ankle swelling). Extremities: (right foot and ankle cellulitis). Neuro: Oriented X 3. No motor deficit. LABS, X-RAYS, AND EKG Pulse Oximetry: 04/05/2017 11:25 O2 saturation: 97%. (FIO2 - room air). Interpretation: normal. PROGRESS AND PROCEDURES Course of Care: Benadryl 50 mg pt refused PO given. Vancomycin 1 gram IVPB given. Zofran 4 mg IVP given. Dilaudid 0.5 mg IVP given. Pt with mild cellulitis of the foot / ankle - had as skin break which is healing. Taking bactrim without much change - will give dose of IV abx (vanco) and add clindamycin. She needs dialysis today and may receive vanco at dialysis as well. She is strongly encouraged to f/u closely with her real estate instructor, Dr Galaviz today - scheduled dialysis. May need ongoing IV abx if not improving 14:00 04/05/17. Pt noting mild erythroderma (no pruritis or swelling or difficulty breathing, talking or swallowing) - could be mild Red man vs dilaudid; no other signs of anaphylaxsis / allergy now. Patient/family counseled. Old ED records reviewed. Disposition: Discharged. Condition: stable and improved. CLINICAL IMPRESSION Cellulitis of the right foot. INSTRUCTIONS Drink plenty of fluids. Warnings: Further evaluation is necessary in order to conduct further tests and assess the possibility of serious illness. It is very important to follow up with a physician. GENERAL WARNINGS: Return or contact your physician immediately if your condition worsens or changes unexpectedly, if not improving as expected, or if other problems arise. Your Current Medications: CONTINUE TAKING THE FOLLOWING MEDICATIONS: Bactrim DS 1 tab BID , started 04/02*. Carvedilol Oral. CloNIDine HCl Oral. Lisinopril Oral. NIFEdipine Oral. Vicodin Oral : 5 mg 3x a day, Last: 0600, prn. Prescription Medications: Clindamycin 300 mg: take 1 capsule orally every 6 hours for 7 days. No refills. Follow-up: Follow up with your doctor Please report to your real estate instructor today - you will need your usual dialysis and may need to be hospitalized for ongoing IV antibiotics if not improving today. (Electronically signed by Hipolito Shannon DO 04/05/2017 14:39)
--- NOTE | 2017-04-05 15:17 | ED MAR SUMMARY ---
..... Medication Administration Record [facility] [address] [place] [address] Patient: RAGHAV SHEN Visit ID: [id number] 51y, F Weight: 57.1 kg Height/Length: 61 in BMI: 23.8 ALLERGIES: Penicillin, Robaxin Start 12:35 04/05/2017 Zeoy Rodney R.N., Stop 13:38 04/05/2017 Zoey Rodney R.N. Medication Administered: IV NS (SALINE), Dose: IV Fluids over 2 hour(s), Rate: 50 mL/hr, Dispensed: 1000 mL bag, Site: #1 right forearm. Medication Ordered: IV NS : initial bolus none -, then 50 mL/hr for 2h (NOW). Start 12:45 04/05/2017 Zoey Rodney R.N., Stop 13:38 04/05/2017 Zoey Rodney R.N. Medication Administered: VANCOMYCIN [IVPB], Dose: 1 gm IVPB over 1 hour(s), Rate: 200 mL/hr, Dispensed: 200 mL bag, Site: #1 right forearm. Medication Ordered: Vancomycin IV 1 gm/200mL (NOW). Given 13:40 04/05/2017 Zoey Rodney R.N. Medication Administered: ZOFRAN [IVP] (ONDANSETRON HCL), Dose: 4 mg IVP over 1 minute(s), Site: #1. Medication Ordered: Zofran IV 4 mg (NOW). Given 13:41 04/05/2017 Zoey Rodney R.N. Medication Administered: DILAUDID [IVP] (HYDROMORPHONE HCL PF), Dose: 0.5 mg IVP over 1 minute(s), Site: #1. Medication Ordered: Dilaudid IV 0.5 mg (HIGH ALERT MEDICATION, NOW).
--- NOTE | 2017-04-05 15:17 | ED MAR SUMMARY ---
..... Medication Administration Record [facility] [address] [place] [address] Patient: RAGHAV SHEN Visit ID: [id number] 51y, F Weight: 57.1 kg Height/Length: 61 in BMI: 23.8 ALLERGIES: Penicillin, Robaxin Start 12:35 04/05/2017 Zoey Rodney R.N., Stop 13:38 04/05/2017 Zoey Rodney R.N. Medication Administered: IV NS (SALINE), Dose: IV Fluids over 2 hour(s), Rate: 50 mL/hr, Dispensed: 1000 mL bag, Site: #1 right forearm. Medication Ordered: IV NS : initial bolus none -, then 50 mL/hr for 2h (NOW). Start 12:45 04/05/2017 Zoey Rodney R.N., Stop 13:38 04/05/2017 Zoey Rodney R.N. Medication Administered: VANCOMYCIN [IVPB], Dose: 1 gm IVPB over 1 hour(s), Rate: 200 mL/hr, Dispensed: 200 mL bag, Site: #1 right forearm. Medication Ordered: Vancomycin IV 1 gm/200mL (NOW). Given 13:40 04/05/2017 Zoey Rodney R.N. Medication Administered: ZOFRAN [IVP] (ONDANSETRON HCL), Dose: 4 mg IVP over 1 minute(s), Site: #1. Medication Ordered: Zofran IV 4 mg (NOW). Given 13:41 04/05/2017 Zoey Rodney R.N. Medication Administered: DILAUDID [IVP] (HYDROMORPHONE HCL PF), Dose: 0.5 mg IVP over 1 minute(s), Site: #1. Medication Ordered: Dilaudid IV 0.5 mg (HIGH ALERT MEDICATION, NOW).
--- NOTE | 2017-04-05 15:17 | ED DISCHARGE INSTRUCTIONS ---
Patient: RAGHAV SHEN General Instructions [facility] VisitID: [id number] [address] [place] [address] 51y, F Registration Date/Time: 04/05/2017 Cellulitis of the right foot. INSTRUCTIONS Drink plenty of fluids. Warnings: Further evaluation is necessary in order to conduct further tests and assess the possibility of serious illness. It is very important to follow up with a physician. GENERAL WARNINGS: Return or contact your physician immediately if your condition worsens or changes unexpectedly, if not improving as expected, or if other problems arise. Your Current Medications: CONTINUE TAKING THE FOLLOWING MEDICATIONS: Bactrim DS 1 tab BID , started 04/02*. Carvedilol Oral. CloNIDine HCl Oral. Lisinopril Oral. NIFEdipine Oral. Vicodin Oral : 5 mg 3x a day, Last: 0600, prn. Prescription Medications: Clindamycin 300 mg: take 1 capsule orally every 6 hours for 7 days. No refills. Follow-up: Follow up with your doctor Please report to your secondary school teacher today - you will need your usual dialysis and may need to be hospitalized for ongoing IV antibiotics if not improving today. ADDITIONAL INFORMATION Cellulitis You have an infection of the skin known as cellulitis. This usually starts with a scrape, cut, insect bite, blister or other opening in the skin which becomes infected. This is a serious condition. It must be watched closely to be sure the infection is not spreading. With antibiotic treatment, the size of the red area will gradually shrink in size until the skin returns to normal. This will take 7-10 days. The red area should never increase in size once the antibiotic medicine has been started. Occasionally, an infection will be resistant to one antibiotic and another one will have to be used. Home Care: 1) Limit the use of the affected part, since excess movement can cause the infection to spread. 2) If the infection is on your leg, walk as little as possible during the first few days of the treatment. Keep your leg elevated while sitting. This will reduce swelling. 3) Take all of the antibiotic medicine exactly as directed until it is gone. Be careful not to miss any doses, especially during the first seven days. Follow Up with your doctor or this facility as directed. Check the infected area daily for the warning signs listed below. Get Prompt Medical Attention if any of the following occur: -- Spreading area of redness -- Increasing swelling or pain -- Appearance of pus or drainage -- Fever over 100.4 F (38.0 C) oral, or over 101.4 F (38.6 C) rectal, after two days on antibiotics Clindamycin Hydrochloride Oral capsule What is this medicine? CLINDAMYCIN (LISSETTE Evans) is a lincosamide antibiotic. It is used to treat certain kinds of bacterial infections. It will not work for colds, flu, or other viral infections. How should I use this medicine? Take this medicine by mouth with a full glass of water. Follow the directions on the prescription label. You can take this medicine with food or on an empty stomach. If the medicine upsets your stomach, take it with food. Take your medicine at regular intervals. Do not take your medicine more often than directed. Take all of your medicine as directed even if you think your are better. Do not skip doses or stop your medicine early. Talk to your hardware installer regarding the use of this medicine in children. Special care may be needed. What side effects may I notice from receiving this medicine? Side effects that you should report to your doctor or health memory care program resident as soon as possible: allergic reactions like skin rash, itching or hives, swelling of the face, lips, or tongue dark urine pain on swallowing redness, blistering, peeling or loosening of the skin, including inside the mouth unusual bleeding or bruising unusually weak or tired yellowing of eyes or skin Side effects that usually do not require medical attention (report to your doctor or health memory care program resident if they continue or are bothersome): diarrhea itching in the rectal or genital area joint pain nausea, vomiting stomach pain What may interact with this medicine? chloramphenicol erythromycin kaolin products What if I miss a dose? If you miss a dose, take it as soon as you can. If it is almost time for your next dose, take only that dose. Do not take double or extra doses. Where should I keep my medicine? Keep out of the reach of children. Store at room temperature between 20 and 25 degrees C (68 and 77 degrees F). Throw away any unused medicine after the expiration date. What should I tell my health care provider before I take this medicine? They need to know if you have any of these conditions: kidney disease liver disease stomach problems like colitis an unusual or allergic reaction to clindamycin, lincomycin, or other medicines, foods, dyes like tartrazine or preservatives or trying to get breast-feeding What should I watch for while using this medicine? Tell your doctor or healthcare professional if your symptoms do not start to get better or if they get worse. Do not treat diarrhea with over the counter products. Contact your doctor if you have diarrhea that lasts more than 2 days or if it is severe and watery. You have been given the following additional information: Cellulitis Clindamycin Hydrochloride Oral capsule (Electronically signed by Hipolito Shannon DO 04/05/2017 14:39)
--- NOTE | 2017-04-05 15:17 | ED DISCHARGE INSTRUCTIONS ---
Patient: RAGHAV SHEN General Instructions [facility] VisitID: [id number] [address] [place] [address] 51y, F Registration Date/Time: 04/05/2017 Cellulitis of the right foot. INSTRUCTIONS Drink plenty of fluids. Warnings: Further evaluation is necessary in order to conduct further tests and assess the possibility of serious illness. It is very important to follow up with a physician. GENERAL WARNINGS: Return or contact your physician immediately if your condition worsens or changes unexpectedly, if not improving as expected, or if other problems arise. Your Current Medications: CONTINUE TAKING THE FOLLOWING MEDICATIONS: Bactrim DS 1 tab BID , started 04/02*. Carvedilol Oral. CloNIDine HCl Oral. Lisinopril Oral. NIFEdipine Oral. Vicodin Oral : 5 mg 3x a day, Last: 0600, prn. Prescription Medications: Clindamycin 300 mg: take 1 capsule orally every 6 hours for 7 days. No refills. Follow-up: Follow up with your doctor Please report to your branch specialist today - you will need your usual dialysis and may need to be hospitalized for ongoing IV antibiotics if not improving today. ADDITIONAL INFORMATION Cellulitis You have an infection of the skin known as cellulitis. This usually starts with a scrape, cut, insect bite, blister or other opening in the skin which becomes infected. This is a serious condition. It must be watched closely to be sure the infection is not spreading. With antibiotic treatment, the size of the red area will gradually shrink in size until the skin returns to normal. This will take 7-10 days. The red area should never increase in size once the antibiotic medicine has been started. Occasionally, an infection will be resistant to one antibiotic and another one will have to be used. Home Care: 1) Limit the use of the affected part, since excess movement can cause the infection to spread. 2) If the infection is on your leg, walk as little as possible during the first few days of the treatment. Keep your leg elevated while sitting. This will reduce swelling. 3) Take all of the antibiotic medicine exactly as directed until it is gone. Be careful not to miss any doses, especially during the first seven days. Follow Up with your doctor or this facility as directed. Check the infected area daily for the warning signs listed below. Get Prompt Medical Attention if any of the following occur: -- Spreading area of redness -- Increasing swelling or pain -- Appearance of pus or drainage -- Fever over 100.4 F (38.0 C) oral, or over 101.4 F (38.6 C) rectal, after two days on antibiotics Clindamycin Hydrochloride Oral capsule What is this medicine? CLINDAMYCIN (LISSETTE Evans) is a lincosamide antibiotic. It is used to treat certain kinds of bacterial infections. It will not work for colds, flu, or other viral infections. How should I use this medicine? Take this medicine by mouth with a full glass of water. Follow the directions on the prescription label. You can take this medicine with food or on an empty stomach. If the medicine upsets your stomach, take it with food. Take your medicine at regular intervals. Do not take your medicine more often than directed. Take all of your medicine as directed even if you think your are better. Do not skip doses or stop your medicine early. Talk to your plant electrical engineer regarding the use of this medicine in children. Special care may be needed. What side effects may I notice from receiving this medicine? Side effects that you should report to your doctor or health child care education coordinator as soon as possible: allergic reactions like skin rash, itching or hives, swelling of the face, lips, or tongue dark urine pain on swallowing redness, blistering, peeling or loosening of the skin, including inside the mouth unusual bleeding or bruising unusually weak or tired yellowing of eyes or skin Side effects that usually do not require medical attention (report to your doctor or health child care education coordinator if they continue or are bothersome): diarrhea itching in the rectal or genital area joint pain nausea, vomiting stomach pain What may interact with this medicine? chloramphenicol erythromycin kaolin products What if I miss a dose? If you miss a dose, take it as soon as you can. If it is almost time for your next dose, take only that dose. Do not take double or extra doses. Where should I keep my medicine? Keep out of the reach of children. Store at room temperature between 20 and 25 degrees C (68 and 77 degrees F). Throw away any unused medicine after the expiration date. What should I tell my health care provider before I take this medicine? They need to know if you have any of these conditions: kidney disease liver disease stomach problems like colitis an unusual or allergic reaction to clindamycin, lincomycin, or other medicines, foods, dyes like tartrazine or preservatives or trying to get breast-feeding What should I watch for while using this medicine? Tell your doctor or healthcare professional if your symptoms do not start to get better or if they get worse. Do not treat diarrhea with over the counter products. Contact your doctor if you have diarrhea that lasts more than 2 days or if it is severe and watery. You have been given the following additional information: Cellulitis Clindamycin Hydrochloride Oral capsule (Electronically signed by Hipolito Shannon DO 04/05/2017 14:39)
--- NOTE | 2017-04-05 15:17 | ED MED RECONCILIATION SUMMARY ---
Patient: RAGHAV SHEN Medication Reconciliation Report [facility] VisitID: [id number] [address] [place] [address] 51y, F Registration Date/Time: 04/05/2017 Weight: 57.1 kg Height/Length: 61 in. BMI: 23.8 ALLERGIES: Penicillin, Robaxin The patient's Home Medications are listed below: CONTINUE TAKING THE FOLLOWING MEDICATIONS: Bactrim DS 1 tab BID , started 04/02 Carvedilol Oral CloNIDine HCl Oral Lisinopril Oral NIFEdipine Oral Vicodin Oral 5 mg, 3x a day, last dose: 0600 The source(s) of the original Home Medication information: Not obtained. The following Medications were given to the patient in the Emergency Department: Vancomycin [IVPB] IVPB bolus 0, then 1 gm 200 mL/hr, administered: 04/05/2017 12:45:00 PM IV NS IV Fluids bolus 0, then 50 mL/hr, administered: 04/05/2017 12:35:00 PM Zofran [IVP] IVP 4 mg, administered: 04/05/2017 1:40:00 PM Dilaudid [IVP] IVP 0.5 mg, administered: 04/05/2017 1:41:00 PM The following Medications were prescribed to the patient: Clindamycin 300 mg: take 1 capsule orally every 6 hours for 7 days. No refills. -- Hipolito Shannon DO
--- NOTE | 2017-04-05 15:17 | ED MED RECONCILIATION SUMMARY ---
Patient: RAGHAV HSEN Medication Reconciliation Report [facility] VisitID: [id number] [address] [place] [address] 51y, F Registration Date/Time: 04/05/2017 Weight: 57.1 kg Height/Length: 61 in. BMI: 23.8 ALLERGIES: Penicillin, Robaxin The patient's Home Medications are listed below: CONTINUE TAKING THE FOLLOWING MEDICATIONS: Bactrim DS 1 tab BID , started 04/02 Carvedilol Oral CloNIDine HCl Oral Lisinopril Oral NIFEdipine Oral Vicodin Oral 5 mg, 3x a day, last dose: 0600 The source(s) of the original Home Medication information: Not obtained. The following Medications were given to the patient in the Emergency Department: Vancomycin [IVPB] IVPB bolus 0, then 1 gm 200 mL/hr, administered: 04/05/2017 12:45:00 PM IV NS IV Fluids bolus 0, then 50 mL/hr, administered: 04/05/2017 12:35:00 PM Zofran [IVP] IVP 4 mg, administered: 04/05/2017 1:40:00 PM Dilaudid [IVP] IVP 0.5 mg, administered: 04/05/2017 1:41:00 PM The following Medications were prescribed to the patient: Clindamycin 300 mg: take 1 capsule orally every 6 hours for 7 days. No refills. -- Hipolito Shannon DO
== END 2017-04-05 13:45 | disposition home or self-care (01) ==
LOC: ED SRH 11:16
DX: L03.115 Cellulitis of right lower limb (principal); N19 Unspecified kidney failure; Z79.899 Other long term (current) drug therapy; Z79.891 Long term (current) use of opiate analgesic; Z79.2 Long term (current) use of antibiotics; Z88.8 Allergy status to other drugs, medicaments and biological substances; Z88.0 Allergy status to penicillin